=== PATIENT | male | born 1995 | race Caucasian/White ===

== ENCOUNTER 2017-08-12 18:57 | Emergency (ER) | payer SELFPAY ==
[~2017-08-12] VITALS: Ht 188 cm; Wt 81.8 kg
[~2017-08-12 18:57] MED LIST: GENTAMICIN EYE D5 ML OD; GENTAMICIN OPTHA3 GM OD; IBUPROFEN200 M1 PO; IBUPROFEN600 MG PO; NORCO 325 MG-51 TA1 PO
[2017-08-12] MEDS ORDERED: AMOXICILLIN875 MG PO (20:16)
[2017-08-12 20:37] VITALS: BP 117/76
== END 2017-08-12 20:37 | disposition home or self-care (01) ==
LOC: ED 18:57
DX: T70.0XXA Otitic barotrauma, initial encounter (principal); H66.93 Otitis media, unspecified, bilateral; W16.612A Jumping or diving into natural body of water striking water surface causing other injury, initial encounter; Y92.828 Other wilderness area as the place of occurrence of the external cause
CPT/HCPCS: J1885

== ENCOUNTER 2020-09-24 00:20 | Emergency (ER) | payer SELFPAY ==
[~2020-09-24 00:20] MED LIST changes: +AMOXICILLIN875 MG PO
[2020-09-24 01:06] VITALS: BP 138/76
[2020-09-24] MEDS ORDERED: AMOXIL500 M1 PO (01:51)
== END 2020-09-24 02:14 | disposition home or self-care (01) ==
LOC: ED 00:20
DX: T70.0XXA Otitic barotrauma, initial encounter (principal); F17.210 Nicotine dependence, cigarettes, uncomplicated; X50.1XXA Overexertion from prolonged static or awkward postures, initial encounter; Y93.15 Activity, underwater diving and snorkeling

== ENCOUNTER 2021-10-03 11:04 | Emergency (ER) | payer SELFPAY ==
[~2021-10-03] VITALS: Ht 190.5 cm; Wt 97.5 kg
[~2021-10-03 11:04] MED LIST changes: +AMOXIL500 M1 PO
[2021-10-03 11:18] VITALS: BP 146/91
[2021-10-03] MEDS ORDERED: AMOXICILLIN AND1 TA2 PO (11:58)
== END 2021-10-03 12:12 | disposition home or self-care (01) ==
LOC: ED 11:04
DX: S61.250A Open bite of right index finger without damage to nail, initial encounter (principal); Z23 Encounter for immunization; W55.01XA Bitten by cat, initial encounter
CPT/HCPCS: 90715

== ENCOUNTER → 2021-12-14 | Outpatient (CLI) | payer SELFPAY ==
[~2021-12-14] MED LIST changes: +AMOXICILLIN AND1 TA2 PO
== END ==
LOC: RAD 14:17
DX: S89.91XA Unspecified injury of right lower leg, initial encounter (principal); X58.XXXA Exposure to other specified factors, initial encounter